=== PATIENT | male | born 1950 ===

== ENCOUNTER 2021-01-18 06:30 | Day surgery (SDC) | payer OTHER | END 2021-01-18 10:20 | disposition home or self-care (01) | LOC: AMB-ENDOS 06:30 | PROVIDERS: ATTEND Surgery | DX: D12.0 Benign neoplasm of cecum (principal); D12.2 Benign neoplasm of ascending colon; D12.3 Benign neoplasm of transverse colon; K64.8 Other hemorrhoids; Z20.822 Contact with and (suspected) exposure to COVID-19 ==